=== PATIENT | male | born 1950 | race Caucasian/White ===

== ENCOUNTER 2020-01-05 21:16 | Outpatient (CLI) | payer MEDICARE | END 2020-01-05 21:17 | disposition home or self-care (01) | LOC: BURCT 21:16 → BURLAB 21:17 → BURCT 22:55 | PROVIDERS: ATTEND Family Medicine | DX: Z01.812 Encounter for preprocedural laboratory examination (principal) | CPT/HCPCS: 36415; 82565 ==

== ENCOUNTER 2020-01-06 08:59 | Outpatient (CLI) | payer MEDICARE ==
--- NOTE | 2020-01-06 14:44 | CT ---
CT OF THE CHEST AND ABDOMEN WITH CONTRAST: Date: 01/06/[address] of the chest and abdomen was performed after injecting IV contrast. Oral contrast was given for the abdominal portion. Axial slices were acquired, followed by coronal and sagittal reconstructi ons. FINDINGS: CT THORAX: There was no sign of mediastinal mass or adenopathy. The lungs are clear except for some minimal depe ndent atelectasis. There is a 1.0 cm nodular density seen in the right posterior right hemithorax mik t abuts the pleura and is located at about the L1 vertebral level. There is some minimal spiculation surrounding this density. Its appearance is equivocal in terms of significance. It could be longstand ing and due to prior disease here, or could potentially have neoplastic implications. At this point, it should probably just be watched. I reviewed at 09/08/2015 CT from [facility] t hat began to show some pleural density here on the topmost slice, so it is not seen completely. It koenig ggests that there was thickening here in the past. I would recommend a 6 month follow-up just to be fredy you. 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 So me degenerative changes in the thoracic spine are seen consistent with anterior osteophytes. Beginnin g at about the T9-T10 level, there begins to be some slight encroachment on neural foramina and the c entral canal from this level down through about T12. There is some ossification of the ligamentum fla vum, particularly at the T12 level, which may slightly impinge upon the thecal sac. A MRI would be be tter situated to determine if any of these findings are significant. CT ABDOMEN: The liver, spleen, pancreas, adrenal glands, kidneys, and abdominal aorta showed no acute findings. T he gallbladder is generous in size measuring 9.8 cm in length, however, its wall does not appear thic k, nor are there any stones or inflammatory changes around it. All major organs were unremarkable in appearance. Regarding the visible portions of the bowel, one could argue for some very slight wall thickening in the right colon through the hepatic flexure. The finding is marginal and mainly mentioned because of the history of right upper quadrant pain. This may or may not be significant for mild inflammation. S ome diverticulosis is seen in the visible portions of the left colon. There are no findings of divert iculitis. There are extensive degenerative changes in this patient's lumbar spine. There begins to be some mode rate central canal stenosis at L2-L3, then at L3-L4 and L4-L5 there is severe central canal stenosis. L5-S1 is not shown optimally, but there is considerable facet arthritis at this level, especially on the right side, which could easily cause some impingement. IMPRESSION: 1. No definite acute thoracic findings. 2. Some mild degenerative changes in the lower thoracic spine, none of which are dramatic, but nonet heless are present. MRI would be more sensitive at showing a neural impingement. 3. 1.0 cm nodular pleural density in the right posterior hemithorax. There may have been a similar f inding on the 2016 CT, but it is only seen on one slice. At this point, I would be comfortable follow ing it up with another CT in 6 months. 4. No acute abnormality of any of the major abdominal organs. 5. Mild enlargement of the gallbladder without any other abnormal findings. If symptoms point to gal lbladder disease, an ultrasound or HIDA scan could be helpful. 6. Equivocal mild thickening of the folds of the right colon. Diverticulosis of the left colon witho ut diverticulitis. 7. 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 POS: HOME
[2020-01-06] MEDS ORDERED: Iopamidol 370 76% 100 ML VIAL ONE (17:02)
== END 2020-01-06 09:00 | disposition home or self-care (01) ==
LOC: BURCT 08:59
PROVIDERS: ATTEND Family Medicine
DX: R10.11 Right upper quadrant pain (principal); M47.24 Other spondylosis with radiculopathy, thoracic region; R91.8 Other nonspecific abnormal finding of lung field; K57.30 Diverticulosis of large intestine without perforation or abscess without bleeding; K82.8 Other specified diseases of gallbladder; K63.89 Other specified diseases of intestine; M48.061 Spinal stenosis, lumbar region without neurogenic claudication; M47.816 Spondylosis without myelopathy or radiculopathy, lumbar region
CPT/HCPCS: 71260; 74160; Q9967